=== PATIENT | female | born 1975 | race Caucasian/White ===

== ENCOUNTER 2016-06-30 09:43 | Emergency (ER) | payer BC, MEDICAID, OTHER ==
[~2016-06-30] VITALS: Ht 167.6 cm; Wt 95.1 kg
[2016-06-30] MEDS ORDERED: SODIUM CHLORIDE 0.9% 1,000 ML IV ONE (10:04)
[2016-06-30] MEDS ORDERED: FAMOTIDINE 20 MG/2 ML ONE (10:15)
[2016-06-30] MEDS ORDERED: ONDANSETRON 2MG/ML, 2ML ONE (10:15)
[2016-06-30] MEDS ORDERED: HYDROmorphone 1 MG/ML, 1ML ONE ×2 (10:16→11:11)
[2016-06-30 10:23] LABS: HEMOGLOBIN 15.6 g/dL (11.7-16.4)
[2016-06-30] MEDS: HYDROmorphone 1 MG/ML, 1ML IVPush PRN ×2 (10:24→11:14)
[2016-06-30] MEDS ORDERED: FAMOTIDINE 20 MG/2 ML IVP ONE (10:30)
[2016-06-30] MEDS ORDERED: SODIUM CHLORIDE 0.9% 1,000ML IVBOLUS ONE (10:30)
[2016-06-30] MEDS ORDERED: ONDANSETRON 2MG/ML, 2ML IVPush ONE (10:30)
[2016-06-30 10:36] LABS: ASPARTATE AMINO TRANSFERASE 32 U/L (15-37); BLOOD UREA NITROGEN 11 mg/dL (7-18)
[2016-06-30 10:44] LABS: IS PT STATUS REG ER OR PRE ER? YES
[2016-06-30] MEDS ORDERED: MAALOX/HYOSCYAMINE/LIDOCAINE 45 ML BOTTLE PO ONE (12:00)
[2016-06-30] MEDS ORDERED: OMNIPAQUE 350 MG/ML, 100ML BOTTLE ONE (12:19)
[2016-06-30] MEDS ORDERED: MAALOX/HYOSCYAMINE/LIDOCAINE 45 ML BOTTLE ONE (12:22)
[2016-06-30 13:33] VITALS: BP 125/72
== END 2016-06-30 13:36 | disposition home or self-care (01) ==
LOC: ED 10:49
DX: R10.11 Right upper quadrant pain (principal); R11.2 Nausea with vomiting, unspecified; Z90.49 Acquired absence of other specified parts of digestive tract
CPT/HCPCS: 36415; 71010; 74177; 76700; 80053; 81003; 83690; 84484; 84703; 85025; 93005; 96361; 96374; 96375; 96376; 99285; J1170; J2405; J7030; Q9967; S0028

== ENCOUNTER 2016-08-02 15:55 | Emergency (ER) | payer SELFPAY ==
[~2016-08-02] VITALS: Ht 167.6 cm; Wt 99.4 kg
[~2016-08-02 15:55] MED LIST: ASPI-650 PO; ONDA4TAB10 PO
[2016-08-02] MEDS ORDERED: HYDROcodone/APAP 5/325 TABLET ONE (16:37)
[2016-08-02] MEDS ORDERED: ONDANSETRON ODT 4 MG ONE (16:37)
[2016-08-02] MEDS ORDERED: HYDROcodone/APAP 5/325 TABLET PO ONE (17:00)
[2016-08-02] MEDS ORDERED: ONDANSETRON ODT 4 MG PO ONE (17:00)
[2016-08-02 17:05] VITALS: BP 112/70
== END 2016-08-02 17:07 | disposition home or self-care (01) ==
LOC: ED 17:01
DX: S83.92XA Sprain of unspecified site of left knee, initial encounter (principal); X58.XXXA Exposure to other specified factors, initial encounter; Y93.89 Activity, other specified; Y92.89 Other specified places as the place of occurrence of the external cause; Y99.8 Other external cause status; E11.9 Type 2 diabetes mellitus without complications; Z88.0 Allergy status to penicillin; Z88.5 Allergy status to narcotic agent
CPT/HCPCS: 29505; 73564; 99284; Q0162

== ENCOUNTER 2016-08-03 16:37 | Emergency (ER) | payer SELFPAY ==
[~2016-08-03] VITALS: Ht 167.6 cm; Wt 96.5 kg
[2016-08-03 16:51] VITALS: BP 146/78
[2016-08-03] MEDS ORDERED: IBUPROFEN 200 MG TABLET PO ONE (17:30)
[2016-08-03] MEDS ORDERED: OXYcodone/APAP 5/325MG TABLET PO ONE (17:30)
[2016-08-03] MEDS ORDERED: OXYcodone/APAP 5/325MG TABLET ONE (17:36)
[2016-08-03] MEDS ORDERED: IBUPROFEN 200 MG TABLET ONE (17:36)
== END 2016-08-03 18:32 | disposition home or self-care (01) ==
LOC: ED 18:00
DX: M79.662 Pain in left lower leg (principal); Z88.0 Allergy status to penicillin; Z88.6 Allergy status to analgesic agent
CPT/HCPCS: 99284

== ENCOUNTER 2016-09-19 17:07 | Emergency (ER) | payer SELFPAY ==
[~2016-09-19] VITALS: Ht 167.6 cm; Wt 100.0 kg
[2016-09-19] MEDS ORDERED: SODIUM CHLORIDE FLUSH 10ML SYR IVF ONE (18:00)
[2016-09-19] MEDS ORDERED: SODIUM CHLORIDE 0.9% 1,000ML IVBOLUS ONE (18:00)
[2016-09-19 18:38] LABS: BLOOD UREA NITROGEN 15 mg/dL (7-18); IS PT STATUS REG ER OR PRE ER? YES
[2016-09-19 19:15] VITALS: BP 109/65
[2016-09-19] MEDS ORDERED: METOCLOPRAMIDE 5 MG/ML, 2ML ONE (19:27)
[2016-09-19] MEDS ORDERED: DIPHENHYDRAMINE 50 MG/ML, 1ML ONE ×2 (19:27→19:28)
[2016-09-19] MEDS ORDERED: METOCLOPRAMIDE 5 MG/ML, 2ML IVPush ONE (19:30)
[2016-09-19] MEDS ORDERED: DIPHENHYDRAMINE 50 MG/ML, 1ML IVPush ONE (19:30)
== END 2016-09-19 20:16 | disposition home or self-care (01) ==
LOC: ED 19:42
DX: R07.2 Precordial pain (principal); G43.009 Migraine without aura, not intractable, without status migrainosus; E11.9 Type 2 diabetes mellitus without complications; I25.2 Old myocardial infarction; Z88.0 Allergy status to penicillin
CPT/HCPCS: 36415; 70450; 71010; 80048; 82040; 84484; 85025; 93005; 96361; 96374; 96375; 99285; J1200; J2765; J7030

== ENCOUNTER 2017-04-15 13:31 | Emergency (ER) | payer OTHER ==
[~2017-04-15] VITALS: Ht 167.6 cm; Wt 104.3 kg
[2017-04-15 13:33] VITALS: BP 136/64
[2017-04-15] MEDS ORDERED: OXYcodone/APAP 5/325MG TABLET ONE ×2 (14:17)
[2017-04-15] MEDS ORDERED: OXYcodone/APAP 5/325MG TABLET PO ONE (14:30)
== END 2017-04-15 15:06 | disposition home or self-care (01) ==
LOC: ED 15:00
DX: S63.501A Unspecified sprain of right wrist, initial encounter (principal); E11.9 Type 2 diabetes mellitus without complications; I25.2 Old myocardial infarction; Z90.49 Acquired absence of other specified parts of digestive tract; W18.30XA Fall on same level, unspecified, initial encounter; Y93.E1 Activity, personal bathing and showering; Y92.89 Other specified places as the place of occurrence of the external cause; Y99.8 Other external cause status
CPT/HCPCS: 29125; 99284

== ENCOUNTER 2017-09-08 07:22 | Emergency (ER) | payer SELFPAY ==
[~2017-09-08] VITALS: Ht 167.6 cm; Wt 113.4 kg
[2017-09-08] MEDS ORDERED: SUMATRIPTAN 6MG/0.5ML SQ ONE ×2 (09:08→10:00)
[2017-09-08] MEDS ORDERED: METOCLOPRAMIDE 5 MG/ML, 2ML ONE (09:09)
[2017-09-08] MEDS ORDERED: KETOROLAC 30 MG/1 ML ONE (09:09)
[2017-09-08] MEDS ORDERED: DEXAMETHASONE 4 MG/ML, 1ML ONE (09:09)
[2017-09-08] MEDS ORDERED: DIPHENHYDRAMINE 50 MG/ML, 1ML ONE (09:09)
[2017-09-08] MEDS ORDERED: DIPHENHYDRAMINE 50 MG/ML, 1ML IVPush ONE (10:00)
[2017-09-08] MEDS ORDERED: SODIUM CHLORIDE 0.9% 1,000ML IVBOLUS ONE (10:00)
[2017-09-08] MEDS ORDERED: SODIUM CHLORIDE FLUSH 10ML SYR IVF ONE (10:00)
[2017-09-08] MEDS ORDERED: DEXAMETHASONE 4 MG/ML, 1ML IVPush ONE (10:00)
[2017-09-08] MEDS ORDERED: METOCLOPRAMIDE 5 MG/ML, 2ML IVPush ONE (10:00)
[2017-09-08] MEDS ORDERED: KETOROLAC 30 MG/1 ML IVPush ONE (10:00)
[2017-09-08 11:04] VITALS: BP 149/82
== END 2017-09-08 11:08 | disposition home or self-care (01) ==
LOC: ED 09:09
DX: G43.009 Migraine without aura, not intractable, without status migrainosus (principal); C53.9 Malignant neoplasm of cervix uteri, unspecified; E11.9 Type 2 diabetes mellitus without complications; G51.0 Bell's palsy; Z90.49 Acquired absence of other specified parts of digestive tract
CPT/HCPCS: 96372; 96374; 96375; 99284; J1100; J1200; J1885; J2765; J3030; J7030